=== PATIENT | male | born 1995 | race African-American/Black ===

== ENCOUNTER 2017-09-07 07:12 | Emergency (ER) | payer SELFPAY ==
[~2017-09-07] VITALS: Ht 180.3 cm; Wt 83.9 kg
[2017-09-07] MEDS ORDERED: NKM (07:18)
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
--- NOTE | 2017-09-07 09:04 | Diagnostic Imaging Report ---
Indication: Pain Technique: XRAY Chest 1v Comparison: None Findings: Heart size and mediastinal contours are within normal limits. There is no focal airspace consolidation, pneumothorax or pleural effusion. Osseous structures demonstrate no acute abnormality. Impression: No radiographic evidence of acute cardiopulmonary disease.
[2017-09-07 09:06] LABS: APPEARANCE,URINE CLEAR; KETONES,URINE NEGATIVE (NEGATIVE); LEUKOCYTE ESTERASE ,URINE NEGATIVE (NEGATIVE); NITRITE,URINE NEGATIVE (NEGATIVE); PH,URINE 6.5 (4.5-8.0); PROTEIN,URINE NEGATIVE (NEGATIVE); UROBILINOGEN,URINE NORMAL MG/DL (0.0-1.0)
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
[2017-09-07 09:30] VITALS: BP 107/62
[2017-09-07] MEDS ORDERED: IBUPROFEN600 MG ORAL (09:32)
== END 2017-09-07 09:35 | disposition home or self-care (01) ==
LOC: EMR 08:45
DX: S39.012A Strain of muscle, fascia and tendon of lower back, initial encounter (principal); V43.52XA Car driver injured in collision with other type car in traffic accident, initial encounter; Y92.410 Unspecified street and highway as the place of occurrence of the external cause; R91.1 Solitary pulmonary nodule
CPT/HCPCS: 71010; 74176; 81003; 99284

== ENCOUNTER 2019-11-24 11:09 | Emergency (ER) | payer OTHER ==
[~2019-11-24] VITALS: Ht 180.3 cm; Wt 88.5 kg
[~2019-11-24 11:09] MED LIST: IBUPROFEN600 MG ORAL; NKM
[2019-11-24 11:15] VITALS: BP 113/67
--- NOTE | 2019-11-24 11:20 | NUR ---
ED Nurse Note: patient walked into ED c/o nosebleed everyday for 1 week. patient c/o sorethroat for 2 days. patient denies any injury. patient is alert awake x4 ambulatory, breathing unlabored and even.
[2019-11-24] MEDS ORDERED: ZITHROMAX250 MG ORAL (11:24)
[2019-11-24] MEDS ORDERED: AFRIN NASAL SPR30 ML NASAL (11:24)
--- NOTE | 2019-11-24 11:27 | Emergency Room Report ---
History of Present Illness General Chief Complaint: Nosebleed Source: Patient Present Illness HPI Patient is a 24-year-old male denies any significant past medical history who presents to the ER complaining of nosebleeds for the past week. He states that he has some bleeding from his right nostril which is not currently occurring. Patient also complains of throat pain and sinus pain and congestion for the past several days. He denies any fever or chills. He denies any cough. He denies any difficulty swallowing, changes in his voice, drooling, neck stiffness or rash. He denies any recent travel or sick contacts. He denies any chest pain or shortness of breath. He denies any facial trauma. Allergies: Coded Allergies: No Known Allergies (Unverified , 09/07/17) Patient History Social History: Denies: smoking, alcohol use, drug use Reviewed Nursing Documentation: PMH: Agreed; PSxH: Agreed Nursing Documentation-PMH Past Medical History: No Stated History Review of Systems All Other Systems: negative except mentioned in HPI Physical Exam Vital Signs Date Time Temp Pulse Resp B/P (MAP) Pulse Ox O2 Delivery O2 Flow Rate FiO2 11/24/19 11:15 97.5 55 17 113/67 (82) 100 Room Air Sp02 EP Interpretation: reviewed, normal General Appearance: no apparent distress, alert, GCS 15, non-toxic Head: normocephalic, atraumatic Eyes: bilateral eye normal inspection, bilateral eye PERRL ENT: hearing grossly normal, normal pharynx, no angioedema, normal voice, other - Dried blood around right nare, mild bilateral tonsillar erythema with no swelling no exudate no peritonsillar cellulitis or peritonsillar abscess frontal and maxillary sinus tenderness on palpation. Neck: full range of motion, supple/symm/no masses Respiratory: chest non-tender, lungs clear, normal breath sounds, speaking full sentences Cardiovascular #1: no edema, bradycardia Gastrointestinal: normal bowel sounds, non tender, soft, non-distended, no guarding, no rebound Rectal: deferred Genitourinary: normal inspection, no CVA tenderness Musculoskeletal: back normal, normal range of motion, calf tenderness, gait/ station normal, non-tender Neurologic: alert, motor strength/tone normal, oriented x3, sensory intact, responsive, speech normal Psychiatric: judgement/insight normal, memory normal, mood/affect normal, no suicidal/homicidal ideation Skin: no rash Lymphatic: no adenopathy Medical Decision Making Diagnostic Impression: Primary Impression: Epistaxis Additional Impressions: Sinusitis Pharyngitis ER Course After discussing risks and benefits of further diagnostics, treatment plans, as well as indications for and risks of admission, the patient is agreeable to being discharged home. I have explained that their evaluation and treatment in the emergency department today is an important step towards them achieving better health but that their evaluation today is not intended to replace further evaluation and treatment by a physician in their local clinic. I have explained that while the current findings suggest no immediate life threatening emergency they will require further evaluation and treatment by a physician of their choice in their area. They understand that it will be necessary for them to review the final reports of their ED visit with their clinic physician. We have reviewed indications for return to the Emergency Department. I have explained that additional time may need to pass and/or additional testing as an outpatient may be necessary before a definitive diagnosis can be made. They tell me they are willing to follow up as instructed within the timeframe I recommend. They appear to understand what we discussed. Additionally they understand that if they are unable to be seen by an outpatient physician they are welcome, and in fact should, return to the Emergency Department for a repeat evaluation. The patient is stable at time of discharge. Last Vital Signs Date Time Temp Pulse Resp B/P (MAP) Pulse Ox O2 Delivery O2 Flow Rate FiO2 11/24/19 11:15 97.5 55 17 113/67 (82) 100 Room Air Disposition: HOME, SELF-CARE Condition: Stable Scripts Azithromycin* (ZITHROMAX*) 250 Mg Tablet 250 MG ORAL DAILY, #6 TAB 0 Refills Take two tables once daily for 1 day, then one tablet once daily for 4 days. Prov: Mary Carmen Truong M.D. 11/24/19 Oxymetazoline HCl (Afrin) 15 Ml [place] 2 SPRAYS NASAL TWICE A DAY, #30 SPRAY Prov: Mary Carmen Truong M.D. 11/24/19 Referrals: [facility] Patient Instructions: Sinusitis, Adult, [id number], Tonsillitis, Ojll-[id number] , Nosebleed, [id number] Additional Instructions: Patient discharged in stable condition with outpatient follow-up and strict return precautions Mary Carmen Truong M.D. Nov 24, 2019 11:27
[2019-11-24 11:36] VITALS: BP 113/67
--- NOTE | 2019-11-24 11:37 | NUR ---
ER DISCHARGE NOTE: Patient is cleared to be discharged per ERMD DR SEBASTIAN, pt is aox4, on room air, with stable vital signs. pt was given dc and prescription instructions, pt was able to verbalize understanding, pt id band removed without complications. pt is able to ambulate with steady gait. pt took all belongings.
== END 2019-11-24 11:46 | disposition home or self-care (01) ==
LOC: EMR 11:42
DX: R04.0 Epistaxis (principal); J32.9 Chronic sinusitis, unspecified; J02.9 Acute pharyngitis, unspecified
CPT/HCPCS: 99282